=== PATIENT | male | born 1995 ===

== ENCOUNTER 2018-02-03 14:58 | Emergency (ER) | payer OTHER ==
[2018-02-03 15:17] VITALS: BP 114/63; PULSE 77; RESP 18; TEMP 98.1; O2SAT 100
[2018-02-03] MEDS ORDERED: Alum-Mag Hydrox-Simethicone Susp (30 mL) PO STA (15:54)
[2018-02-03] MEDS ORDERED: Alum-Mag Hydrox-Simethicone Susp (30 mL) ONE (16:11)
--- NOTE | 2018-02-03 16:14 | ED PDOC ---
HPI: Abdomen Time Seen by Provider: 02/03/18 15:21 Chief Complaint (Nursing): Abdominal Pain Chief Complaint (Provider): Abdominal Pain History Per: Patient History/Exam Limitations: no limitations Onset/Duration Of Symptoms: Days (several) Current Symptoms Are (Timing): Still Present Location Of Pain/Discomfort: RLQ, LLQ Quality Of Discomfort: "Pain" Associated Symptoms: Diarrhea (occasional blood ) Additional Complaint(s): 22 year old male with a history of gastric ulcers presents to the ED with worsening lower abdominal pain associated with increasing bouts of diarrhea and occasional blood in stool for the last several days. Patient reports for the last 3 years he has experienced intermittent abdominal pain. He was worked up, including an endoscopy, that revealed gastric ulcers. Occasionally, he takes medications for his ulcers, but has not in over a year. Patient is tolerating PO. Denies fever, vomiting, rash, swelling of extremities, history of hemorrhoids, pain to rectum, pain on defecation and pain, swelling or rash to penis and testicles. PMD: none provided Past Medical History Reviewed: Historical Data, Nursing Documentation, Vital Signs Vital Signs: Last Vital Signs Temp 98.1 F 02/03/18 15:15 Pulse 77 02/03/18 15:15 Resp 18 02/03/18 15:15 BP 114/63 02/03/18 15:15 Pulse Ox 100 02/04/18 00:31 - Medical History PMH: Gastrointestinal Ulcer - Surgical History Surgical History: Endoscopy - Family History Family History: States: No Known Family Hx Other Family History: believes mother has hx of gastric ulcers - Social History Drugs: Cannabis - Immunization History Hx Tetanus Toxoid Vaccination: No Hx Influenza Vaccination: No Hx Pneumococcal Vaccination: No - Allergies Allergies/Adverse Reactions: Allergies Allergy/AdvReac Type Severity Reaction Status Date / Time shrimp Allergy RASH Verified 02/03/18 15:15 Review of Systems ROS Statement: Except As Marked, All Systems Reviewed And Found Negative Constitutional: Negative for: Fever Gastrointestinal: Positive for: Abdominal Pain (worsening lower ), Diarrhea ( increasing number of episodes ), Hematochezia (occasional). Negative for: Vomiting, Rectal Pain Genitourinary Male: Negative for: Rash, Penile Pain Physical Exam - Reviewed Nursing Documentation Reviewed: Yes Vital Signs Reviewed: Yes - Physical Exam Appears: Positive for: Non-toxic, No Acute Distress Head Exam: Positive for: ATRAUMATIC, NORMAL INSPECTION, NORMOCEPHALIC Skin: Positive for: Normal Color, Warm, Dry. Negative for: Rash Eye Exam: Positive for: EOMI, Normal appearance, PERRL Neck: Positive for: Normal, Painless ROM, Supple Cardiovascular/Chest: Positive for: Regular Rate, Rhythm. Negative for: Murmur Respiratory: Positive for: Normal Breath Sounds. Negative for: Respiratory Distress Gastrointestinal/Abdominal: Positive for: Tenderness (mild tenderness to right lower and left lower quadrants) Extremity: Positive for: Normal ROM. Negative for: Deformity, Swelling Neurologic/Psych: Positive for: Alert, Oriented (x 3). Negative for: Motor/ Sensory Deficits - Laboratory Results Result Diagrams: 02/03/18 16:05 02/03/18 16:05 - ECG O2 Sat by Pulse Oximetry: 100 (RA) Pulse Ox Interpretation: Normal Medical Decision Making Medical Decision Makin:50 MDM: workup for lower abdominal pain and diarrhea --Labs, CT Abd & Pelvis and IV Fluids ordered. --GI cocktail for pain. Patient declines other pain medications at this time. --Reassess --If necessary, rectal exam will be performed if CT is inconclusive. 17:07 CT Abd & Pelvis FINDINGS: LOWER THORAX: Unremarkable. LIVER: Unremarkable. No gross lesion or ductal dilatation. GALLBLADDER AND BILE DUCTS: Unremarkable. PANCREAS: Unremarkable. No gross lesion or ductal dilatation. SPLEEN: Unremarkable. ADRENALS: Unremarkable. No mass. KIDNEYS AND URETERS: Unremarkable. No hydronephrosis. No solid mass. VASCULATURE: Unremarkable. No aortic aneurysm. BOWEL: The colon is decompressed. Oral contrast was not administered. Thickening of the wall of the colon which is mild and diffuse consistent with mild colitis. Diverticulosis without an acute inflammatory component or other associated pathologic process. APPENDIX: Unremarkable. Normal appendix. PERITONEUM: Unremarkable. No free fluid. No free air. LYMPH NODES: Unremarkable. No enlarged lymph nodes. BLADDER: Unremarkable. REPRODUCTIVE: Unremarkable. BONES: No acute fracture. OTHER FINDINGS: None. IMPRESSION: Mild thickening of the wall of the colon which is undistended. Oral contrast was not administered. There are mild findings however to suggest colitis. 18:37 --Patient reports improvement of symptoms. CT shows mild colitis and diverticulosis without diverticulitis. Given referral for outside follow up. Patient is stable for discharge. Scribe Attestation: Documented by Christina Conti, acting as a scribe for Rosemary Olmos MD Provider Scribe Attestation: All medical record entries made by the Scribe were at my direction and personally dictated by me. I have reviewed the chart and agree that the record accurately reflects my personal performance of the history, physical exam, medical decision making, and the department course for this patient. I have also personally directed, reviewed, and agree with the discharge instructions and disposition. Disposition - Clinical Impression Clinical Impression: Abdominal pain, Diverticulitis - Patient ED Disposition Is Patient to be Admitted: No - Disposition Referrals: [facility] [Outside] Disposition Time: 19:00 Condition: IMPROVED Additional Instructions: EDITH LUJAN, thank you for letting us take care of you today. Your provider was Rosemary Olmos MD and you were treated for ABD PAIN. The emergency medical care you received today was directed at your acute symptoms. If you were prescribed any medication, please fill it and take as directed. It may take several days for your symptoms to resolve. Return to the Emergency Department if your symptoms worsen, do not improve, or if you have any other problems. Please contact your doctor or call one of the physicians/clinics you have been referred to that are listed on the Patient Visit Information form that is included in your discharge packet. Bring any paperwork you were given at discharge with you along with any medications you are taking to your follow up visit. Our treatment cannot replace ongoing medical care by a primary care provider outside of the emergency department. [facility]. If you had an X-Ray or CT scan: A Radiologist will review the ED reading if any change in treatment is needed we will contact you. If you had a blood, urine, or wound culture: It will take several days for the results, if any change in treatment is needed we will contact you. If you had an STI test: It will take 48 hours for the results. Please call after 1 week if you have not heard back. Instructions: Diverticulitis (DC), Acute Abdomen (Belly Pain), Adult (DC), Viral Gastroenteritis, Adult (DC) Forms: [employer] (Thai) Print Language: MONTSERRATIAN
[2018-02-03 16:22] LABS: BASO # 0.1 K/uL (0.0-0.2); BASO % 0.5 % (0.0-2.0); EOS # 0.1 K/uL (0.0-0.7); EOS % 0.9 % (0.0-4.0); HEMOGLOBIN 14.2 g/dL (12.0-18.0); LYMPH # 3.1 K/uL (1.0-4.3); LYMPH % 25.2 % (20.0-40.0); MEAN CELL VOLUME 89.7 fl (80.0-94.0); MEAN CORPUSCULAR HEMOGLOBIN 29.5 pg (27.0-31.0); MEAN CORPUSCULAR HGB CONC 32.9 g/dL (33.0-37.0); MEAN PLATELET VOLUME 8.7 fl (7.2-11.7); MONO # 0.8 K/uL (0.0-0.8); MONO % 6.2 % (0.0-10.0); NEUT # 8.3 K/uL (1.8-7.0); NEUT % 67.2 % (50.0-75.0); NRBC % 0.1 % (0.0-0.0); RBC 4.8 Mil/uL (4.40-5.90); RED CELL DISTRIBUTION WIDTH 13.3 % (11.5-14.5); WHITE BLOOD COUNT 12.4 K/uL (4.8-10.8)
[2018-02-03 16:35] LABS: INR 1.1; PROTHROMBIN TIME 11.8 Seconds (9.8-13.1)
[2018-02-03 16:37] LABS: ALB/GLOB RATIO 1.3 (1.0-2.1); ALBUMIN 4.5 g/dL (3.5-5.0); ALT/SGPT 67 U/L (21-72); AST/SGOT 39 U/L (17-59); BLOOD UREA NITROGEN 12 mg/dl (9-20); GFR NON-AFRICAN AMERICAN > 60; LIPASE 68 U/L (23-300); PARTIAL THROMBOPLASTIN TIME 33.8 Seconds (25.6-37.1)
[2018-02-03 16:43] LABS: URINE BACTERIA OCC (<OCC); URINE BILIRUBIN NEGATIVE (NEGATIVE); URINE BLOOD NEGATIVE (NEGATIVE); URINE CLARITY SLIGHTY-CLOUDY (Clear); URINE COLOR YELLOW (YELLOW); URINE GLUCOSE (UA) NEG (Normal); URINE LEUKOCYTE ESTERASE NEG Leu/uL (Negative); URINE PROTEIN NEGATIVE (NEGATIVE); URINE UROBILINOGEN 0.2-1.0 mg/dL (0.2-1.0)
--- NOTE | 2018-02-03 17:23 | CT ---
Date of service: 02/03/2018 PROCEDURE: CT Abdomen and Pelvis without intravenous contrast HISTORY: worsening lower abdominal pain with blood in stool COMPARISON: None. TECHNIQUE: Unenhanced study. Neither oral nor intravenous contrast administered. Radiation dose: Total exam DLP = 722.28 mGy-cm. This CT exam was performed using one or more of the following dose reduction techniques: Automated exposure control, adjustment of the mA and/or kV according to patient size, and/or use of iterative reconstruction technique. FINDINGS: LOWER THORAX: Unremarkable. LIVER: Unremarkable. No gross lesion or ductal dilatation. GALLBLADDER AND BILE DUCTS: Unremarkable. PANCREAS: Unremarkable. No gross lesion or ductal dilatation. SPLEEN: Unremarkable. ADRENALS: Unremarkable. No mass. KIDNEYS AND URETERS: Unremarkable. No hydronephrosis. No solid mass. VASCULATURE: Unremarkable. No aortic aneurysm. BOWEL: The colon is decompressed. Oral contrast was not administered. Thickening of the wall of the colon which is mild and diffuse consistent with mild colitis. Diverticulosis without an acute inflammatory component or other associated pathologic process. APPENDIX: Unremarkable. Normal appendix. PERITONEUM: Unremarkable. No free fluid. No free air. LYMPH NODES: Unremarkable. No enlarged lymph nodes. BLADDER: Unremarkable. REPRODUCTIVE: Unremarkable. BONES: No acute fracture. OTHER FINDINGS: None. IMPRESSION: Mild thickening of the wall of the colon which is undistended. Oral contrast was not administered. There are mild findings however to suggest colitis.
== END 2018-02-03 19:01 | disposition home or self-care (01) ==
LOC: H.ER 14:58
DX: R10.9 Unspecified abdominal pain (principal); K57.92 Diverticulitis of intestine, part unspecified, without perforation or abscess without bleeding

== ENCOUNTER 2018-10-02 20:54 | Emergency (ER) | payer MEDICAID ==
[2018-10-02 21:46] VITALS: RESP 18; O2SAT 98
[2018-10-02] MEDS ORDERED: Lidocaine 1% Inj (20ml) IJ STA (22:06)
--- NOTE | 2018-10-02 22:50 | ED PDOC ---
HPI: Skin/Bite Injury Time Seen by Provider: 10/02/18 22:00 Chief Complaint (Nursing): Abnormal Skin Integrity Chief Complaint (Provider): laceration History Per: Patient History/Exam Limitations: no limitations Onset/Duration Of Symptoms: Hrs Additional Complaint(s): 23 yo M presents to ED for evaluation of right wrist injury. Pt reports he got mad, punched a glass window, which shattered and cut him on his fingers and mainly the wrist. pt reports a lot of bleeding. Applied pressure and came here. He reports pain at first to cuts of wrist, but has improved. Pt denies pain to fingers or hand. Denies other injury, numbness or tingling, decrease motor or sensation. Tetanus UTD PMD: Dr. Gray Past Medical History Reviewed: Historical Data, Nursing Documentation, Vital Signs Vital Signs: Last Vital Signs Temp 98.0 F 10/02/18 21:41 Pulse 86 10/02/18 21:41 Resp 18 10/02/18 21:41 BP 127/85 10/02/18 21:41 Pulse Ox 98 10/02/18 21:41 Primary Care Provider: Mame Gray - Medical History PMH: Asthma, Gastrointestinal Ulcer - Surgical History Surgical History: Endoscopy - Family History Family History: States: No Known Family Hx - Immunization History Hx Tetanus Toxoid Vaccination: No Hx Influenza Vaccination: No Hx Pneumococcal Vaccination: No - Home Medications Home Medications: Ambulatory Orders Medication Instructions Recorded Bacitracin OINT 1 applic TP BID #1 tube 10/02/18 - Allergies Allergies/Adverse Reactions: Allergies Allergy/AdvReac Type Severity Reaction Status Date / Time shrimp Allergy RASH Verified 02/03/18 15:15 Review of Systems Musculoskeletal: Positive for: Other (wrist pain) Neurological: Negative for: Weakness, Numbness Physical Exam - Reviewed Nursing Documentation Reviewed: Yes Vital Signs Reviewed: Yes - Physical Exam Comments: GENERAL APPEARANCE: Patient is awake, alert, oriented x 3, in no acute distress. SKIN: Warm, dry; (-) cyanosis. CHEST AND RESPIRATORY: (-) chest wall tenderness. Lungs: (-) rales, (-) rhonchi, (-) wheezes; breath sounds equal bilaterally. HEART AND CARDIOVASCULAR: (-) irregularity; (-) murmur, (-) gallop. EXTREMITIES: pulses +2, capillary refill <2sec, RUE: (+) multiple scabbed abrasions to top of fingers (+) 3 small superficial lacerations to lateral distal forearm, (2 measuring 1 cm each, 1 measuring 4mm, edges well approximated, (+)white paint in smallest laceration, easily removed (-)glass pieces (-) Tenderness, (-) swelling, (-) ecchymosis of wrist. (-) deformity. 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 NEURO AND PSYCH: Mental status as above. - ECG O2 Sat by Pulse Oximetry: 98 Medical Decision Making Medical Decision Makin:00 initial eval - laceration -- laceration repair -- wound irrigation -- ibuprofen PO pt tolerated laceration well, bacitracin and bandage applied Discussed results, diagnosis, treatment, wound care, return precautions and f/u with pt who is understanding, in agreement and stable for dc Disposition - Clinical Impression Clinical Impression: Laceration of wrist, right - Patient ED Disposition Is Patient to be Admitted: No Counseled Patient/Family Regarding: Studies Performed, Diagnosis, Need For Followup, Rx Given - Disposition Referrals: Mame Gray MD [Primary Care Provider] - Disposition: Routine/Home Disposition Time: 23:59 Condition: STABLE Additional Instructions: Thank you for letting us take care of you today. The emergency medical care you received today was directed at your acute symptoms. Keep wound clean, dry and covered during the day. Do not get wet for 24 hours, do not soak in water. clean gently with soap and water. Apply ice for swelling. Take Tylenol or ibuprofen for pain. Apply bacitracin/neosporin 1-2 times a day. It may take several days for your symptoms to resolve. Return to the Emergency Department if your symptoms worsen, do not improve, or if you have any other problems, such as fever >100.4, increase redness or swel ling, foul odor or drainage. Come back to the ED in 10-14 days for wound check and suture removal Please contact your doctor in 2 days for re-evaluation and follow up / or call one of the physicians/clinics you have been referred to that are listed on the Patient Visit Information form that is included in your discharge packet. Bring any paperwork you were given at discharge with you along with any medications you are taking to your follow up visit. Our treatment cannot replace ongoing medical care by a primary care provider (PCP) outside of the emergency department. Prescriptions: Bacitracin OINT 1 applic TP BID #1 tube Instructions: Wound Care, Laceration Repair With Stitches (DC) Print Language: SLOVAK - POA Present On Arrival: None Procedures - Time-Out Type of Procedure: laceration - Laceration/Wound Repair Wrist Wound Length (cm): 2.5 Wound's Depth, Shape: superficial, linear Wound Explored: foreign body removed (small paint chip) Irrigated w/ Saline (ccs): 250 Anesthesia: 1% Lidocaine Volume Anesthetic (ccs): 5 Wound Repaired With: Sutures Suture Size/Type: 4:0, proline Number of Sutures: 9 Wound Complexity: Simple
[2018-10-03 00:19] VITALS: BP 122/81; PULSE 88; TEMP 98.5
== END 2018-10-03 00:09 | disposition home or self-care (01) ==
LOC: H.ER 20:54
DX: S61.511A Laceration without foreign body of right wrist, initial encounter (principal); J45.909 Unspecified asthma, uncomplicated; W25.XXXA Contact with sharp glass, initial encounter